=== PATIENT | female | born 1995 | race Caucasian/White ===

== ENCOUNTER 2019-05-17 13:33 | Emergency (ER) | payer OTHER ==
[~2019-05-17] VITALS: Ht 162.6 cm; Wt 61.7 kg
[2019-05-17] MEDS ORDERED: LEVO88TA3 (13:40)
[2019-05-17 14:49] LABS: BASO % 0.4 % (0.0-1.0); EOS # 0.2 10^3/uL (0.0-0.5); EOS % 1.8 % (0.0-3.0); HEMATOCRIT 45.3 % (36.0-47.0); HEMOGLOBIN 14.4 g/dl (12.0-15.5); LYMPH # 2.7 10^3/uL (1.5-5.0); LYMPH % 28.2 % (24.0-44.0); MEAN CORPUSCULAR HEMOGLOBIN 28.8 pg (27.0-33.0); MEAN CORPUSCULAR HGB CONC 31.8 g/dl (32.0-36.5); MEAN CORPUSCULAR VOLUME 90.6 fl (80.0-96.0); MONO # 0.9 10^3/uL (0.0-0.8); MONO % 9.1 % (0.0-5.0); NEUTROPHILS # 5.8 10^3/uL (1.5-8.5); NEUTROPHILS % 60.1 % (36.0-66.0); PLATELET COUNT, AUTOMATED 276 10^3/uL (150-450); WHITE BLOOD COUNT 9.7 10^3/uL (4.0-10.0)
[2019-05-17 15:10] LABS: ALBUMIN 4.2 GM/DL (3.2-5.2); ALT/SGPT 20 U/L (12-78); BILIRUBIN,DIRECT 0.4 MG/DL (0.0-0.2); BILIRUBIN,TOTAL 1.8 MG/DL (0.2-1.0); LIPASE 67 U/L (73-393); TOTAL PROTEIN 7.9 GM/DL (6.4-8.2)
[2019-05-17 15:12] LABS: HCG, SERUM QUALITATIVE NEGATIVE (NEGATIVE)
[2019-05-17] MEDS ORDERED: NS 1,000 ML IV ONE (15:45)
[2019-05-17] MEDS ORDERED: ISOVUE-370 76% 100ML VIAL (Q9967) As Ordered ONE (15:56)
[2019-05-17 16:07] LABS: FREE T4 1.21 NG/DL (0.76-1.46)
--- NOTE | 2019-05-17 16:28 | REP ---
CT of the abdomen and pelvis with IV contrast, without bowel contrast for right lower quadrant abdominal pain: There are no comparisons. The visualized lung gottlieb are unremarkable. The hepatic parenchyma is homogeneous. The gallbladder, pancreas, spleen, adrenals, kidneys and abdominal aorta are unremarkable. There is no ascites. No inflammatory changes in the mesentery. No bowel distension or obstruction. No ascites. Pelvis: The appendix cannot be identified, however, there is no pericecal inflammation or abscess. There is a trace of free fluid in the pelvis. There is an IUD in the uterus. The left adnexa is unremarkable. The right adnexa is obscured by bowel. Impression: The gallbladder is unremarkable. There is no hydronephrosis. The left adnexa is unremarkable. The appendix cannot be identified, however, there is no pericecal inflammation or abscess. The right adnexa is obscured by bowel. There is an IUD in the uterus. There is a trace of free fluid in the pelvis. Electronically Signed by Ace Baca MD 05/17/2019 04:18 P
[2019-05-17] MEDS ORDERED: ZOFR4TAB16 PO (16:50)
[2019-05-17 17:07] VITALS: BP 109/67
--- NOTE | 2019-05-18 14:57 | ECGEPIP ---
[facility] - ED Test Date: 2019-05-17 Pat Name: YEVGENIY PARRA Department: Room: - Gender: Female [employer]urement Manager: robin : 1995 Requested By: PADMINI Ordonez Order Number: [id number] Reading MD: Lita Myers Measurements Intervals [place] Rate: 91 P: 36 TX: 140 QRS: 28 QRSD: 87 T: 40 QT: 353 QTc: 436 Interpretive Statements SINUS RHYTHM NO PRIOR Electronically Signed on 05-18-2019 14:56:57 EST by Lita Myers
== END 2019-05-17 17:23 | disposition home or self-care (01) ==
LOC: M ED 13:33
DX: R11.0 Nausea (principal); R42 Dizziness and giddiness; E03.9 Hypothyroidism, unspecified; J45.909 Unspecified asthma, uncomplicated; E80.4 Gilbert syndrome; Z97.5 Presence of (intrauterine) contraceptive device; Z88.8 Allergy status to other drugs, medicaments and biological substances; Z79.818 Long term (current) use of other agents affecting estrogen receptors and estrogen levels
CPT/HCPCS: 74177; 80047; 80076; 81001; 83690; 84439; 84443; 84703; 85025; 93005; 96360; 99284; Q9967

== ENCOUNTER → 2019-06-13 | Outpatient (REF) | payer OTHER ==
[~2019-06-13] MED LIST: LEVO88TA3; ZOFR4TAB16 PO
[2019-06-13 22:36] LABS: CHLAMYDIA DNA AMPLIFICATION NEGATIVE (NEGATIVE); GC DNA AMPLIFICATION NEGATIVE (NEGATIVE)
== END ==
LOC: M SFHCLERA 14:53
PROVIDERS: ATTEND Nurse Practitioner Family
DX: R30.0 Dysuria (principal)
CPT/HCPCS: 81002; 81025; 87070; 87086; 87661; G0463

== ENCOUNTER → 2019-11-02 | Outpatient (REF) | payer OTHER | LOC: M WUC 20:29 | PROVIDERS: ATTEND Physician Assistant | DX: R30.0 Dysuria (principal) ==

== ENCOUNTER 2020-01-17 11:50 | Emergency (ER) | payer OTHER ==
[~2020-01-17] VITALS: Ht 162.6 cm; Wt 62.7 kg
[2020-01-17] MEDS ORDERED: ACETAMINOPHEN 500 MG TAB PO ONE (12:45)
[2020-01-17] MEDS ORDERED: PILL CUTTER 1 EACH XX ONE (12:48)
[2020-01-17 13:36] VITALS: BP 129/73
== END 2020-01-17 13:39 | disposition home or self-care (01) ==
LOC: M ED 11:50
DX: S00.93XA Contusion of unspecified part of head, initial encounter (principal); W22.8XXA Striking against or struck by other objects, initial encounter; Y92.9 Unspecified place or not applicable; Y99.0 Civilian activity done for income or pay; E80.4 Gilbert syndrome; E03.9 Hypothyroidism, unspecified; Z79.899 Other long term (current) drug therapy

== ENCOUNTER → 2020-03-06 | Outpatient (CLI) | payer SELFPAY | LOC: M LABSMTC 14:13 | PROVIDERS: ATTEND Pediatrics | DX: Z20.828 Contact with and (suspected) exposure to other viral communicable diseases (principal) ==

== ENCOUNTER → 2020-05-10 | Outpatient (CLI) | payer SELFPAY | LOC: M LABSMTC 12:17 | PROVIDERS: ATTEND Pediatrics | DX: Z20.822 Contact with and (suspected) exposure to COVID-19 (principal) ==

== ENCOUNTER → 2020-08-04 | Outpatient (REF) | LOC: M LABSMTC 09:13 | PROVIDERS: ATTEND Pediatrics | DX: Z11.52 Encounter for screening for COVID-19 (principal) ==

== ENCOUNTER 2020-08-25 11:50 | Emergency (ER) | payer BC ==
[~2020-08-25] VITALS: Ht 162.6 cm; Wt 58.2 kg
[2020-08-25] MEDS ORDERED: CEPH500C PO (12:41)
[2020-08-25 12:56] VITALS: BP 120/70
== END 2020-08-25 12:58 | disposition home or self-care (01) ==
LOC: M ED 11:50
DX: L03.115 Cellulitis of right lower limb (principal); E03.9 Hypothyroidism, unspecified; E80.4 Gilbert syndrome; Z79.890 Hormone replacement therapy; Z88.1 Allergy status to other antibiotic agents; Z88.8 Allergy status to other drugs, medicaments and biological substances

== ENCOUNTER → 2020-08-30 | Outpatient (REF) ==
[~2020-08-30] MED LIST changes: +CEPH500C PO
== END ==
LOC: M LABSMTC 11:03
PROVIDERS: ATTEND Pediatrics
DX: Z11.52 Encounter for screening for COVID-19 (principal)

== ENCOUNTER 2021-06-17 14:03 | Emergency (ER) | payer BC, OTHER ==
[~2021-06-17] VITALS: Ht 162.6 cm; Wt 60.9 kg
[2021-06-17 17:29] LABS: BASO # 0.1 10^3/uL (0.0-0.2); BASO % 0.4 % (0.0-1.0); EOS # 0.2 10^3/uL (0.0-0.5); EOS % 1.3 % (0.0-3.0); HEMATOCRIT 42.5 % (36.0-47.0); HEMOGLOBIN 14.1 g/dl (12.0-15.5); LYMPH # 3.7 10^3/uL (1.5-5.0); LYMPH % 29.9 % (24.0-44.0); MEAN CORPUSCULAR HGB CONC 33.2 g/dl (32.0-36.5); MEAN CORPUSCULAR VOLUME 90.4 fl (80.0-96.0); MONO # 0.8 10^3/uL (0.0-0.8); MONO % 6.1 % (2.0-8.0); NEUTROPHILS # 7.7 10^3/uL (1.5-8.5); NEUTROPHILS % 61.7 % (36.0-66.0); PLATELET COUNT, AUTOMATED 306 10^3/uL (150-450); WHITE BLOOD COUNT 12.4 10^3/uL (4.0-10.0)
[2021-06-17 17:44] LABS: CK-MB VALUE MASS < 1.0 NG/ML (<3.6); CPK CREATINE PHOSPHOKINASE 59 U/L (26-192); MB/CK RELATIVE INDEX 1.69 (< OR =4)
[2021-06-17 17:51] LABS: BLOOD UREA NITROGEN 5 MG/DL (7-18); CALCIUM LEVEL 9.9 MG/DL (8.5-10.1); CARBON DIOXIDE LEVEL 26 MEQ/L (21-32); CHLORIDE LEVEL 105 MEQ/L (98-107); CREATININE FOR GFR 0.74 MG/DL (0.55-1.30); FREE T4 1.31 NG/DL (0.76-1.46); GLOMERULAR FILTRATION RATE > 60.0 (>60); GLUCOSE, FASTING 85 MG/DL (70-100); MAGNESIUM LEVEL 1.9 MG/DL (1.8-2.4); POTASSIUM SERUM 3.7 MEQ/L (3.5-5.1); SODIUM LEVEL 139 MEQ/L (136-145)
[2021-06-17 18:01] VITALS: BP 118/65
== END 2021-06-17 18:12 | disposition home or self-care (01) ==
LOC: M ED 14:03
DX: R07.9 Chest pain, unspecified (principal); I49.8 Other specified cardiac arrhythmias; N63.20 Unspecified lump in the left breast, unspecified quadrant; E03.9 Hypothyroidism, unspecified; Z88.8 Allergy status to other drugs, medicaments and biological substances; Z79.890 Hormone replacement therapy